=== PATIENT | male | born 1970 | race Caucasian/White ===

== ENCOUNTER 2017-02-25 10:20 | Emergency (ER) | payer OTHER ==
--- NOTE | 2017-02-25 10:43 | EDM.PDOC ---
ED HPI GENERAL MEDICAL PROBLEM - General Chief Complaint: Chest Pain Stated Complaint: PAIN DOWN RIGHT CHEST/ARM/BACK Time Seen by Provider: 02/25/17 10:43 Source of Information: Reports: Patient, RN, RN Notes Reviewed History Limitations: Reports: No Limitations - History of Present Illness INITIAL COMMENTS - FREE TEXT/NARRATIVE: Arrives from father's house with sudden onset while at rest approx. 20 mins. ago of right lower chest pain that radiates up to the right shoulder and into the right upper arm. Admits to nausea at onset but not currently. Denies shortness of breath, palpitations, rapid heart rate, or edema. Pt is from [place] and recently drove to [place] to take care of his father. Pt has Hx of mechanical aortic valve and takes coumadin, but has missed a couple of doses because he forgot to bring his medication. Onset: Today Duration: Constant Location: Reports: Chest Quality: Reports: Ache Severity: Moderate Improves with: Reports: None Worsens with: Reports: None Associated Symptoms: Reports: No Other Symptoms Right Chest Pain Score (Numeric/FACES): 4 - Related Data Allergies Allergy/AdvReac Type Severity Reaction Status Date / Time No Known Allergies Allergy Verified 02/25/17 11:18 Home Meds: Home Meds Amoxicillin 2,000 mg PO ASDIRECTED 02/25/17 [History] Cholecalciferol (Vitamin D3) [Vitamin D] 5,000 unit PO DAILY 02/25/17 [History] Lactobacillus Combo No.10 [Probiotic] 1 each PO DAILY 02/25/17 [History] Metoprolol Succinate 50 mg PO DAILY 02/25/17 [History] Warfarin [Coumadin] 5 mg PO DAILY 02/25/17 [History] Past Medical History HEENT History: Reports: Impaired Vision Cardiovascular History: Reports: Heart Murmur, Heart Valve Replacement ( mechanical aortic valve), Hypertension - Past Surgical History GI Surgical History: Reports: Appendectomy Social & Family History - Family History Family Medical History: Noncontributory - Tobacco Use Smoking Status *Q: Never Smoker - Living Situation & Occupation Living situation: Reports: with Family ED ROS GENERAL - Review of Systems Review Of Systems: ROS reveals no pertinent complaints other than HPI. ED EXAM, GENERAL - Physical Exam Exam: See Below Exam Limited By: No Limitations General Appearance: Alert, WD/WN, No Apparent Distress, Anxious Eye Exam: Bilateral Eye: Normal Inspection Nose: Normal Inspection Throat/Mouth: Normal Inspection, Normal Lips, Normal Teeth, Normal Gums, Normal Oropharynx, Normal Voice, No Airway Compromise Head: Atraumatic, Normocephalic Neck: Normal Inspection, Supple, Non-Tender, Full Range of Motion Respiratory/Chest: No Respiratory Distress, Lungs Clear, Normal Breath Sounds, No Accessory Muscle Use, Chest Non-Tender Cardiovascular: Normal Peripheral Pulses, Regular Rate, Rhythm, No Edema, No Gallop, No JVD, No Rub, Systolic Murmur (with loud mechanical click) GI/Abdominal: Normal Bowel Sounds, Soft, No Distention, No Abnormal Bruit, Tender (mild RUQ tenderness). No: Guarding, Rigid, Rebound (Male) Exam: Deferred Rectal (Males) Exam: Deferred Back Exam: Normal Inspection, Full Range of Motion. No: CVA Tenderness (L), CVA Tenderness (R) Extremities: Normal Inspection, Normal Range of Motion, Non-Tender, Normal Capillary Refill, No Pedal Edema Neurological: Alert, Oriented, CN II-XII Intact, Normal Cognition, Normal Gait, No Motor/Sensory Deficits Psychiatric: Normal Mood, Anxious Skin Exam: Warm, Dry, Intact, Normal Color, No Rash EKG INTERPRETATION EKG Date: 02/25/17 Rhythm: NSR [place]: Normal P-Wave: Present QRS: Normal ST-T: Normal QT: Normal Comparison: NA - No Prior EKG EKG Interpretation Comments: no acute ischemic changes Course - Vital Signs Last Recorded V/S: Last Vital Signs Temp 36.9 C 02/25/17 10:30 Pulse 72 02/25/17 10:30 Resp 20 02/25/17 10:30 BP 138/92 H 02/25/17 10:30 Pulse Ox 100 02/25/17 10:30 - Orders/Labs/Meds Orders: Active Orders 24 hr Category Date Time Status EKG 12 Lead [EKG Documentation Completion] [RC] STAT Care 02/25/17 10:43 Active Peripheral IV Care [RC] . DIRECTED Care 02/25/17 10:44 Active Peripheral IV Insertion Adult [OM.PC] Stat Oth 02/25/17 10:43 Ordered Labs: Laboratory Tests 02/25/17 02/25/17 02/25/17 Range/Units 10:53 10:53 10:53 WBC 5.1 (5.0-10.0) 10^3/uL RBC 5.28 (4.6-6.2) 10^6/uL Hgb 15.9 (14.0-18.0) g/dL Hct 43.6 (40.0-54.0) % MCV 82.6 (80-100) fL MCH 30.1 (27.0-34.0) pg MCHC 36.5 H (33.0-35.0) g/dL Plt Count 145 L (150-450) 10^3/uL Neut % (Auto) 41.8 L (42.2-75.2) % Lymph % (Auto) 48.8 (20.5-50.1) % [place] % (Auto) 7.6 (2-8) % Eos % (Auto) 1.2 (1.0-3.0) % Baso % (Auto) 0.6 (0.0-1.0) % PT (9.0-12.0) SEC INR (0.9-1.2) D-Dimer, Quantitative < 100 (0-400) ng/mL Sodium 140 (135-145) mmol/L Potassium 4.3 (3.6-5.0) mmol/L Chloride 103 (101-111) mmol/L Carbon Dioxide 29.0 (21.0-31.0) mmol/L Anion Gap 12.3 BUN 17 (7-18) mg/dL Creatinine 1.0 (0.6-1.3) mg/dL Est Cr Clr Drug Dosing 94.27 mL/min Estimated GFR (MDRD) > 60 BUN/Creatinine Ratio 17.00 Glucose 103 (74-105) mg/dL Calcium 9.7 (8.4-10.2) mg/dl Total Bilirubin 1.4 H (0.2-1.0) mg/dL AST 33 (10-42) IU/L ALT 41 (10-60) IU/L Alkaline Phosphatase 58 (42-121) IU/L Troponin I < 0.02 (0.00-0.02) ng/ml Total Protein 7.8 (6.7-8.2) g/dl Albumin 4.8 (3.2-5.5) g/dl Globulin 3.0 Albumin/Globulin Ratio 1.60 Amylase 32 (28-100) U/L Lipase 25 (22-51) U/L 02/25/17 Range/Units 10:53 WBC (5.0-10.0) 10^3/uL RBC (4.6-6.2) 10^6/uL Hgb (14.0-18.0) g/dL Hct (40.0-54.0) % MCV (80-100) fL MCH (27.0-34.0) pg MCHC (33.0-35.0) g/dL Plt Count (150-450) 10^3/uL Neut % (Auto) (42.2-75.2) % Lymph % (Auto) (20.5-50.1) % [place] % (Auto) (2-8) % Eos % (Auto) (1.0-3.0) % Baso % (Auto) (0.0-1.0) % PT 18.9 H (9.0-12.0) SEC INR 1.9 H (0.9-1.2) D-Dimer, Quantitative (0-400) ng/mL Sodium (135-145) mmol/L Potassium (3.6-5.0) mmol/L Chloride (101-111) mmol/L Carbon Dioxide (21.0-31.0) mmol/L Anion Gap BUN (7-18) mg/dL Creatinine (0.6-1.3) mg/dL Est Cr Clr Drug Dosing mL/min Estimated GFR (MDRD) BUN/Creatinine Ratio Glucose (74-105) mg/dL Calcium (8.4-10.2) mg/dl Total Bilirubin (0.2-1.0) mg/dL AST (10-42) IU/L ALT (10-60) IU/L Alkaline Phosphatase (42-121) IU/L Troponin I (0.00-0.02) ng/ml Total Protein (6.7-8.2) g/dl Albumin (3.2-5.5) g/dl Globulin Albumin/Globulin Ratio Amylase (28-100) U/L Lipase (22-51) U/L Meds: Medications Discontinued Medications Generic Name Dose Route Start Last Admin Trade Name Freq PRN Reason Stop Dose Admin Aspirin 324 mg 02/25/17 10:44 02/25/17 11:07 Aspirin PO 02/25/17 10:45 324 mg ONETIME ONE Administration Nitroglycerin 0.4 mg 02/25/17 10:52 Nitrostat SL Q5M PRN Chest Pain Sodium Chloride 10 ml 02/25/17 10:44 02/25/17 11:15 Saline Flush FLUSH 10 ml ASDIRECTED PRN Administration Keep Vein Open Warfarin Sodium 5 mg 02/25/17 10:52 02/25/17 11:15 Coumadin PO 02/25/17 10:53 5 mg ONETIME ONE Administration - Radiology Interpretation Free Text/Narrative:: CXR: no acute process. Departure - Departure Time of Disposition: 11:59 Disposition: Home, Self-Care 01 Condition: Good Clinical Impression: Biliary colic, Non-cardiac chest pain, Subtherapeutic international normalized ratio (INR) Instructions: Biliary Colic, Nonspecific Chest Pain, [id number] Forms: ED Department Discharge Additional Instructions: Low fat diet. Follow up in clinic for gallbladder evaluation if you have any recurrent right upper abdominal or lower right chest pain, nausea episodes, etc. Rx: Warfarin 5mg Rx: Metoprolol 50mg Have your protime (INR) checked in 5 to 7 days. - My Orders Last 24 Hours: My Active Orders 02/25/17 10:43 EKG 12 Lead [EKG Documentation Completion] [RC] STAT Peripheral IV Insertion Adult [OM.PC] Stat 02/25/17 10:44 Peripheral IV Care [RC] . DIRECTED - Assessment/Plan Last 24 Hours: My Active Orders 02/25/17 10:43 EKG 12 Lead [EKG Documentation Completion] [RC] STAT Peripheral IV Insertion Adult [OM.PC] Stat 02/25/17 10:44 Peripheral IV Care [RC] . DIRECTED
[2017-02-25] MEDS ORDERED: Sodium Chloride 0.9% 10 ML Syringe FLUSH PRN (10:44)
[2017-02-25] MEDS ORDERED: Aspirin 81 MG Tab.Chew PO ONE (10:44)
[2017-02-25] MEDS ORDERED: Nitroglycerin 0.4 MG Tab.SL SL PRN (10:52)
[2017-02-25] MEDS ORDERED: Warfarin 5 MG Tab PO ONE (10:52)
[2017-02-25 11:21] LABS: CHLORIDE,CL 103 mmol/L (101-111); SODIUM,NA 140 mmol/L (135-145)
--- NOTE | 2017-02-25 11:30 | CR ---
Clinical history: 46-year-old male chest pain. Interpretation: Sternotomy wires and external monitor tech leads. Normal cardiac silhouette without cephalization of vascular flow, signs of alveolar edema or dependen t effusion. Daniela thorax unremarkable except for old trauma distal end of the right clavicle. No lung mass, hilar lymphadenopathy or focal lobar pneumonia. No atelectasis/collapse. No pneumothorax or free subdiaphragmatic air. Conclusion: No acute cardiopulmonary abnormality.
--- NOTE | 2017-03-01 09:11 | EKG ---
02/25/2017 - SHOLA AQUINO- FINDINGS: This 12-lead EKG shows a normal sinus rhythm with a ventricular rate of 69. Normal axis and intervals. No acute ST-segment or T-wave changes. [facility] /[id number]
== END 2017-02-25 12:18 | disposition home or self-care (01) ==
LOC: DL.ED 10:20 → MERGE 10:20 → DL.ED 12:18
DX: K80.50 Calculus of bile duct without cholangitis or cholecystitis without obstruction (principal); R07.89 Other chest pain; R79.1 Abnormal coagulation profile; Z79.01 Long term (current) use of anticoagulants; Z79.899 Other long term (current) drug therapy
CPT/HCPCS: 36415; 71045; 80053; 82150; 83690; 84484; 85025; 85379; 85610; 93005; 99285; A9270; J7050